=== PATIENT | female | born 1995 | race Hispanic/Latino ===

== ENCOUNTER 2018-01-23 02:25 | Emergency (ER) | payer BC ==
[~2018-01-23] VITALS: Ht 165.1 cm; Wt 62.1 kg
[2018-01-23] MEDS ORDERED: CYMBALTA60 MG PO (02:48)
[2018-01-23] MEDS ORDERED: MINIPRESS2 MG PO (02:49)
[2018-01-23] MEDS ORDERED: PERCOCET 5-3251 EACH PO (04:57)
[2018-01-23] MEDS ORDERED: FLOMAX0.4 MG PO (04:57)
== END 2018-01-23 05:18 | disposition home or self-care (01) ==
LOC: ED 02:25
DX: N13.2 Hydronephrosis with renal and ureteral calculous obstruction (principal); Z79.899 Other long term (current) drug therapy
CPT/HCPCS: 74177; 80053; 81001; 83690; 84703; 85025; 96374; 96375; 99284; J1885; J2270; J2405; J2550; Q9967